=== PATIENT | male | born 1970 | race Two or more races ===

== ENCOUNTER 2020-07-25 22:15 | Emergency (ER) | payer OTHER ==
[~2020-07-25] VITALS: Ht 170.2 cm; Wt 90.3 kg
[2020-07-25 22:35] VITALS: Ht 170.2 cm; Wt 90.3 kg
[2020-07-26 00:19] LABS: UA SPECIFIC GRAVITY >=1.030 (1.005-1.035); microscopic required? YES; urine erythrocyte 3+ (NEGATIVE)
[2020-07-26 00:52] VITALS: BP 130/74
== END 2020-07-26 00:52 | disposition home or self-care (01) ==
LOC: ED 22:15
PROVIDERS: Emergency Medicine
DX: N39.0 Urinary tract infection, site not specified (principal); I10 Essential (primary) hypertension

== ENCOUNTER 2020-11-13 15:32 | Emergency (ER) | payer OTHER ==
[~2020-11-13] VITALS: Ht 170.2 cm; Wt 86.2 kg
[2020-11-13 15:35] VITALS: Ht 170.2 cm; Wt 86.2 kg
[2020-11-13 18:05] VITALS: BP 140/86
== END 2020-11-13 18:10 | disposition home or self-care (01) ==
LOC: ED 15:32
DX: U07.1 COVID-19 (principal); J12.89 Other viral pneumonia; I10 Essential (primary) hypertension; E78.00 Pure hypercholesterolemia, unspecified